=== PATIENT | female | born 1935 | race Two or more races ===

== ENCOUNTER 2020-03-22 19:28 | Inpatient (IN) | payer MEDICARE, OTHER ==
[~2020-03-22] VITALS: Ht 157.5 cm; Wt 79.4 kg
[2020-03-22] MEDS ORDERED: FUROSEMIDE 40 MG/4 ML VIAL ONE (19:57)
[2020-03-22] MEDS ORDERED: FUROSEMIDE 40 MG/4 ML VIAL IV ONE (20:00)
[2020-03-22 20:10] LABS: BASOPHILS # (AUTO) 0.1 /CMM (0.0-0.2); BASOPHILS % (AUTO) 2.2 % (0.0-2.0); EOSINOPHILS % (AUTO) 1.7 % (0.0-6.0); HEMATOCRIT 38 % (33-45); HEMOGLOBIN 12.7 g/dL (11.5-14.8); LYMPHOCYTES # (AUTO) 1.2 /CMM (0.8-4.8); LYMPHOCYTES % (AUTO) 26.5 % (20.0-44.0); MEAN CORPUSCULAR HGB CONC 34 g/dl (31.0-36.0); MEAN CORPUSCULAR VOLUME 99 fL (82-100); MONOCYTES # (AUTO) 0.3 /CMM (0.1-1.30); MONOCYTES % (AUTO) 7.1 % (2.0-12.0); NEUTROPHILS # (AUTO) 2.8 /CMM (1.8-8.9); NEUTROPHILS % (AUTO) 62.5 % (43.0-81.0); PLATELET COUNT (AUTO) 180 /CMM (150-450); RED BLOOD CELL COUNT(AUTO) 3.82 MIL/uL (4.0-5.2); WHITE BLOOD COUNT (AUTO) 4.5 K/uL (4.3-11.0)
--- NOTE | 2020-03-22 20:11 | NUR ---
. AMBUBIBRA FROM HOME TO ER BED 6. AAOX4. NOT IN RESP DISTRESS, BREATHING EVEN AND UNLABORED. SATTING @ 95% ON RA. AMBULATED FROM GURNEY TO BED. BROUGHT IN FOR SOB. PER EMS REPORT, PT WAS HYPERTENSIVE THAT THEY HAD TO GIVE HER 3 SPRAY OF NITRO. UPON ARRIVL AT THE ER, PT IS NOT IN RESP DISTRESS. SBP WAS NOTED IN THE 150S. MD WAS AT THE BEDSIDE FOR EVAL. ORDERS RECEIVED NOTED AND CARRIED OUT
[2020-03-22 20:26] LABS: CALCIUM, SERUM 8.8 mg/dL (8.5-10.1); CARBON DIOXIDE 27 mmol/L (21-32); CHLORIDE 102 mmol/L (98-107); CREATININE 0.9 mg/dL (0.6-1.3); GLUCOSE 114 mg/dL (74-106); POTASSIUM 3.9 mmol/L (3.5-5.1); SODIUM SERUM 136 mmol/L (136-145); UREA NITROGEN, BLOOD 12 mg/dL (7-18)
[2020-03-22 20:38] LABS: ALANINE AMINOTRANSFERASE 16 U/L (12-78); ALBUMIN 3.6 g/dL (3.4-5.0); ALKALINE PHOSPHATASE 92 U/L (46-116); ASPARTATE AMINOTRANSFERASE 21 U/L (15-37); B-TYPE NATRIURETIC PEPTIDE 470 PG/ML (0-125); BILIRUBIN,DIRECT 0.1 mg/dL (0.0-0.2); BILIRUBIN,TOTAL 0.4 mg/dL (0.2-1.0); TOTAL PROTEIN, SERUM 6.9 g/dL (6.4-8.2)
--- NOTE | 2020-03-22 20:45 | NUR ---
COVID SWAB COLLECTED, CALLED LAB FOR NURSERYMAN ASSISTANT
--- NOTE | 2020-03-22 20:52 | NUR ---
PT/ FAMILY DO NOT HAVE THE LIST OF HER HOME MEDS AVAILABLE. WILL F/U,
--- NOTE | 2020-03-22 21:08 | NUR ---
DR. ARGUETA SPEAKING WITH JUAN CORREA REGARDING ADMISSION
[2020-03-22] MEDS ORDERED: FURO-145 PO (21:10)
[2020-03-22] MEDS ORDERED: ISOS30TA6 PO (21:10)
[2020-03-22] MEDS ORDERED: APIX2.5T PO (21:10)
--- NOTE | 2020-03-22 21:47 | NUR ---
REPORT GIVEN TO MARJ HERNADEZ FOR ANDREA
[2020-03-22 22:00] VITALS: BP 155/60
[2020-03-22] MEDS ORDERED: MAG HYDROX/AL HYDROX/SIMETH 30 ML UDC PO PRN (22:00)
[2020-03-22] MEDS ORDERED: MORPHINE SULFATE INJ 2 MG/ML DISP.SYRIN IV PRN (22:00)
[2020-03-22] MEDS ORDERED: ACETAMINOPHEN 325 MG TABLET PO PRN (22:00)
[2020-03-22] MEDS ORDERED: ZOLPIDEM TARTRATE 5 MG TABLET PO PRN (22:00)
[2020-03-22] MEDS ORDERED: ASPIRIN 325 MG TABLET PO ONE (22:00)
[2020-03-22] MEDS ORDERED: MAGNESIUM HYDROXIDE 30 ML UDC PO PRN (22:00)
[2020-03-22] MEDS ORDERED: Z GUARD REMEDY 2 OZ OINT TP PRN (22:00)
[2020-03-22] MEDS ORDERED: HYDROCODONE/APAP 5/325MG TABLET PO PRN (22:00)
[2020-03-22] MEDS ORDERED: ONDANSETRON HCL/PF 4 MG/2 ML VIAL IVP PRN (22:00)
--- NOTE | 2020-03-22 22:05 | NUR ---
PT TRANSPORTED TO UNIT ON [address] WITH EMT AND RN AT BEDSIDE W/ ACLS PROTOCOL. NAD NOTED DURING TRANSPORT. PT AMBULATED FROM GURNEY TO BED WITHOUT ASSIST ON STEADY GAIT
--- NOTE | 2020-03-22 22:06 | NUR ---
TELE/RN ADMITTING NOTES: RECEIVED REPORT FROM ER NURSE, GEE. PT ARRIVED TO THE UNIT AT 2200 VIA GURNEY WITH ACLS PROTOCOL. A/OX4, STATELESS SPEAKING, REQUIRES REPAIRER CYLINDER HEADS AND TRANSLATION. PT IS VERBALLY RESPONSIVE AND ABLE TO MAKE NEEDS KNOWN. NO SOB NOTED, NO S/S OF DISTRESS, NO C/O PAIN AT THIS TIME. BREATHING EVEN AND UNLABORED. IV SITE ON THE RIGHT AC #20G INTACT AND PATENT. ORIENTED TO UNIT AND STAFF. BELONGINGS LIST CHECKED. INITIAL VS TAKEN. WNL AND STABLE. BP: 155/60, HR:62, RR:20, TEMP:98, PULSE OX 98%. SAFETY MEASURES IN PLACE. BED IN LOW, LOCKED POSITION WITH SR UP X2. WILL CONTINUE TO MONITOR ACCORDINGLY.
--- NOTE | 2020-03-22 22:07 | NUR ---
TELE/RN NOTES: PT TRANSFERRED TO ROOM 304-2. CONNECTED TO TELE MONITOR. CURRENT READING OF SB 56. PT STABLE. WILL CONTINUE TO MONITOR.
[2020-03-22 22:30] VITALS: BP 155/60
--- NOTE | 2020-03-22 23:50 | NUR ---
TELE/RN NOTES: PT.'S DAUGHTER CALLED AGAIN REGARDING PT'S MEDS AT HOME. DAUGHTER WANTS TO INFORM THE DOCTOR THAT SHE TAKES FLECANIDE BID UNKNOWN DOSE, METOPROLOL UNKNOWN DOSE, NITRO SUBLINGUAL NEEDED UNKNOWN DOSE, AND CLONIDINE 0.1MG PRN FOR SBP >160. PER PT'S FAMILY, SHE DOESN'T KNOW THE DOSE BUT SHE WILL F/U IN THE MORNING WITH THE PHARMACY. RELAYED TO TURNING MACHINE OPERATOR, ACUPRESSURIST ALMA. PER ALMA, "INPUT THE MEDS FOR NOW AND I'LL RECONCILE THEM. PT'S BP FOR NOW IS GOOD." PT AWARE. WILL INFORM FAMILY IF THEY CALL BACK AGAIN.
[2020-03-22] MEDS ORDERED: CLON0.1T PO (23:53)
[2020-03-22] MEDS ORDERED: FLEC100T2 PO (23:53)
[2020-03-22] MEDS ORDERED: METO25TA4 PO (23:53)
[2020-03-22] MEDS ORDERED: NITR0.4T48 SL (23:53)
[2020-03-23] VITALS: BP 140/76
[2020-03-23 00:56] LABS: BILIRUBIN,URINE NEGATIVE (NEGATIVE); COLOR,URINE YELLOW (YELLOW); LEUKOCYTE ESTERASE ,URINE NEGATIVE (NEGATIVE); NITRITE, URINE NEGATIVE (NEGATIVE); PROTEIN,URINE NEGATIVE (NEGATIVE); UGLUCOSE NEGATIVE (NEGATIVE); UROBILINOGEN,URINE 0.2 EU/dL (0.2)
[2020-03-23 00:57] LABS: BLOOD, URINE NEGATIVE Ery/uL (NEGATIVE)
[2020-03-23 04:00] VITALS: BP 121/62
[2020-03-23 06:03] LABS: BASOPHILS % (AUTO) 0.8 % (0.0-2.0); EOSINOPHILS % (AUTO) 0.7 % (0.0-6.0); HEMATOCRIT 38 % (33-45); HEMOGLOBIN 13.1 g/dL (11.5-14.8); LYMPHOCYTES # (AUTO) 1.4 /CMM (0.8-4.8); LYMPHOCYTES % (AUTO) 37.1 % (20.0-44.0); MEAN CORPUSCULAR HGB CONC 34 g/dl (31.0-36.0); MEAN CORPUSCULAR VOLUME 97 fL (82-100); MONOCYTES # (AUTO) 0.3 /CMM (0.1-1.30); NEUTROPHILS % (AUTO) 52.4 % (43.0-81.0); PLATELET COUNT (AUTO) 195 /CMM (150-450); RED BLOOD CELL COUNT(AUTO) 3.92 MIL/uL (4.0-5.2); WHITE BLOOD COUNT (AUTO) 3.9 K/uL (4.3-11.0)
[2020-03-23 06:14] LABS: ALANINE AMINOTRANSFERASE 15 U/L (12-78); ALBUMIN 3.7 g/dL (3.4-5.0); ALKALINE PHOSPHATASE 70 U/L (46-116); ASPARTATE AMINOTRANSFERASE 17 U/L (15-37); BILIRUBIN,TOTAL 0.6 mg/dL (0.2-1.0); CALCIUM, SERUM 8.9 mg/dL (8.5-10.1); CARBON DIOXIDE 30 mmol/L (21-32); CHLORIDE 104 mmol/L (98-107); CREATININE 0.9 mg/dL (0.6-1.3); GLUCOSE 91 mg/dL (74-106); MAGNESIUM 2.2 mg/dL (1.8-2.4); PHOSPHORUS 3.4 mg/dL (2.5-4.9); POTASSIUM 3.6 mmol/L (3.5-5.1); SODIUM SERUM 141 mmol/L (136-145); TOTAL PROTEIN, SERUM 6.8 g/dL (6.4-8.2); UREA NITROGEN, BLOOD 13 mg/dL (7-18)
[2020-03-23 06:22] LABS: CHOLESTEROL 147 mg/dL (<200); HDL CHOLESTEROL 78 mg/dL (40-60); LDL 60 mg/dL (0-99); TRIGLYCERIDES 69 mg/dL (30-150)
--- NOTE | 2020-03-23 06:49 | NUR ---
TELE/RN CLOSING NOTES: PT REMAINS A/OX4, BURUNDIAN SPEAKING, REQUIRES DAIRY FARM MANAGER AND TRANSLATION. PT IS VERBALLY RESPONSIVE AND ABLE TO MAKE NEEDS KNOWN. NO SOB NOTED, NO S/S OF DISTRESS, NO C/O PAIN AT THIS TIME. BREATHING EVEN AND UNLABORED. TELE READING OF SB 56. IV SITE ON THE RIGHT AC #20G INTACT AND PATENT. VS WNL AND STABLE. AWAITING FOR MEDS TO BE RECONCILED. SAFETY MEASURES IN PLACE. BED IN LOW, LOCKED POSITION WITH SR UP X2. WILL ENDORSE TO DAY SHIFT FOR ANDREA.
--- NOTE | 2020-03-23 07:35 | NUR ---
SUPERINTENDENT STATIONS OPENING SHIFT NOTES RECEIVED PATIENT RESTING COMFORTABLY IN BED; A/OX4, POLISH SPEAKER. PT IS VERBALLY RESPONSIVE AND ABLE TO MAKE NEEDS KNOWN. PATIENT IS ON OXYGEN VIA NC @ 2L, NO SOB NOTED, NO S/S OF DISTRESS, NO C/O PAIN AT THIS TIME. BREATHING EVEN AND UNLABORED. PATIENT ON TELE MONITOR READING SINUS ACE IN THE 50'S. IV TO RT AC #20G PATENT AND INTACT. SAFETY MEASURES IN PLACE. BED IS AT LOWEST POSITION AND LOCKED WITH SIDE RAILS UP X2. WILL CONTINUE TO MONITOR PT THROUGH SHIFT
[2020-03-23 08:00] VITALS: BP 142/73
[2020-03-23] MEDS ORDERED: NITROGLYCERIN 0.4 MG/TAB BOTTLE SL ONE ×2 (09:00→13:00)
[2020-03-23] MEDS: ASPIRIN 81 MG TAB.CHEW PO SCH (09:03)
[2020-03-23] MEDS: APIXABAN 2.5 MG TABLET PO SCH ×2 (09:05→16:28)
[2020-03-23] MEDS: ISOSORBIDE MONONITRATE (30MG) 30 MG TAB.SR.24H PO SCH (09:06)
[2020-03-23] MEDS: FUROSEMIDE 20 MG TABLET PO SCH (09:06)
[2020-03-23] MEDS ORDERED: CT SWABBABLE VALVE TRANS SET 1 EA INFUS.SET MC ONE (11:56)
[2020-03-23] MEDS ORDERED: IV NS 0.9% 250 ML IV ONE (11:56)
[2020-03-23] MEDS ORDERED: IOHEXOL-350 100 ML VIAL IV ONE (11:56)
[2020-03-23 12:00] VITALS: BP 139/67
[2020-03-23] MEDS ORDERED: METOPROLOL TARTRATE INJ 5 MG/5 ML AMPUL ONE (12:14)
[2020-03-23] MEDS ORDERED: NITROGLYCERIN 0.4 MG/TAB BOTTLE ONE (12:14)
[2020-03-23] MEDS: METOPROLOL TARTRATE INJ 5 MG/5 ML AMPUL IVP PRN ×2 (12:25→12:29)
--- NOTE | 2020-03-23 12:41 | NUR ---
RN NOTES: Post CTA: Patient able to tolerate procedure, No distress noted. transferred back to patient room.
[2020-03-23 16:00] VITALS: BP 114/70
[2020-03-23] MEDS ORDERED: RANO500T3 PO (17:30)
[2020-03-23] MEDS ORDERED: PANT20TA17 PO (17:30)
[2020-03-23] MEDS ORDERED: OLOP2.5D5 EACHEYE (17:30)
[2020-03-23] MEDS ORDERED: ATOR40TA PO (17:30)
[2020-03-23] MEDS ORDERED: POTA-10 PO (17:30)
[2020-03-23] MEDS ORDERED: MELO-105 PO (17:30)
--- NOTE | 2020-03-23 18:00 | NUR ---
METALLURGY LABORATORY TECHNICIAN CLOSING NOTES PATIENT RESTING COMFORTABLY IN BED; A/OX4, UPPER SORBIAN SPEAKER. PATIENT IS ON OXYGEN VIA NC @ 2L, NO SOB NOTED, NO S/S OF DISTRESS, BREATHING EVEN AND UNLABORED. PATIENT ON TELE MONITOR READING SINUS ACE HR 69. IV TO RT AC #20G & LT AC #18G BOTH PATENT AND INTACT. BED IS AT LOWEST POSITION AND LOCKED WITH SIDE RAILS UP X2. WILL ENDORSE TO ONCOMING SHIFT
--- NOTE | 2020-03-23 19:30 | NUR ---
Opening Notes: Report received from am nurse. Patient is ambulatory with walker, able to make needs known. No acute distress noted. Denies any pain, no SOB noted. Patient assisted with ADLs and transfers. Patient able to reposition and turn herself. Fall precautions observed. Call light within reach.
[2020-03-23 20:00] VITALS: BP 118/57
[2020-03-24 06:04] LABS: BASOPHILS % (AUTO) 0.8 % (0.0-2.0); EOSINOPHILS % (AUTO) 1.9 % (0.0-6.0); HEMATOCRIT 38 % (33-45); HEMOGLOBIN 13.2 g/dL (11.5-14.8); LYMPHOCYTES # (AUTO) 1.6 /CMM (0.8-4.8); LYMPHOCYTES % (AUTO) 36.9 % (20.0-44.0); MEAN CORPUSCULAR HGB CONC 35 g/dl (31.0-36.0); MEAN CORPUSCULAR VOLUME 97 fL (82-100); MONOCYTES # (AUTO) 0.4 /CMM (0.1-1.30); MONOCYTES % (AUTO) 9.8 % (2.0-12.0); NEUTROPHILS # (AUTO) 2.2 /CMM (1.8-8.9); NEUTROPHILS % (AUTO) 50.6 % (43.0-81.0); PLATELET COUNT (AUTO) 189 /CMM (150-450); RED BLOOD CELL COUNT(AUTO) 3.87 MIL/uL (4.0-5.2); WHITE BLOOD COUNT (AUTO) 4.3 K/uL (4.3-11.0)
[2020-03-24 06:12] LABS: CALCIUM, SERUM 8.8 mg/dL (8.5-10.1); CREATININE 0.9 mg/dL (0.6-1.3); MAGNESIUM 2.3 mg/dL (1.8-2.4); PHOSPHORUS 4.1 mg/dL (2.5-4.9); POTASSIUM 3.3 mmol/L (3.5-5.1)
--- NOTE | 2020-03-24 06:42 | NUR ---
Closing Notes: Patient in bed eyes, closed, resting comfortably. No acute distress noted. Denies any pain, no SOB noted. Patient assisted with ADLs and transfers. Patient able to reposition and turn herself. Patient without any c/o or issues noted throughout the night. Able to sleep. Fall precautions observed. Call light within reach. VS WNL.
--- NOTE | 2020-03-24 07:30 | NUR ---
MS/RN OPENING NOTE Received patient resting in bed, A&O x 4. Denies any pain/discomfort at this time. Breathing even and non-labored on 2L oxygen via NC. No respiratory or cardiac distress noted. IV access noted on R AC #20 gauge, patent and intact, and flushing well. Sensation from all peripheral extremities intact. Bed locked to its lowest position, side rails x 2 up, call light in hand. Will continue with current medical management.
[2020-03-24 08:48] VITALS: BP 144/86
[2020-03-24] MEDS: ISOSORBIDE MONONITRATE (30MG) 30 MG TAB.SR.24H PO SCH (09:02)
[2020-03-24] MEDS: FUROSEMIDE 20 MG TABLET PO SCH (09:02)
[2020-03-24] MEDS: ASPIRIN 81 MG TAB.CHEW PO SCH (09:02)
[2020-03-24] MEDS: APIXABAN 2.5 MG TABLET PO SCH ×2 (09:03→16:38)
[2020-03-24] MEDS ORDERED: PNEUMOCOCCAL 23-VAL P-SAC VAC 0.5 ML VIAL SQ ONE (10:00)
--- NOTE | 2020-03-24 10:00 | NUR ---
MS/RN NOTE Bernadine, daughter, called to remind her what time patient is going to get picked up if she gets discharged.
--- NOTE | 2020-03-24 10:55 | NUR ---
MS/RN NOTE Administered pneumococcal vaccine on ANANTH. Will continue to monitor.
[2020-03-24] MEDS ORDERED: POTASSIUM CHLORIDE 20 MEQ TAB.PRT.SR PO SCH (11:00)
--- NOTE | 2020-03-24 13:00 | NUR ---
MS/RN NOTE Attempted to call Bernadine (daughter), call went straight to voicemail. Will attempt to call back later.
--- NOTE | 2020-03-24 14:00 | NUR ---
MS/RN NOTE Attempted to call Bernadine (daughter) the second time, call went straight to voicemail again. Will attempt to call back later.
--- NOTE | 2020-03-24 15:12 | NUR ---
MS/RN NOTE Attempted to call Bernadine (daughter) the third time, call went straight to voicemail again. Called Scot (son) instead regarding discharge time and instructions.
[2020-03-24 16:28] VITALS: BP 154/72
--- NOTE | 2020-03-24 17:30 | NUR ---
MS/CONSTRUCTION ADMINISTRATIVE ASSISTANT NOTES Patient picked up at 1730 by Scot (son). All needs are met and attended to. Patient remained stable throughout shift. A&O X 4, VSS, afebrile, no SOB noted. Denies any pain/discomfort at this time. Breathing even and non-labored on 2L oxygen, no respiratory distress noted. No cardiac distress noted. IV access on R AC #20 gauge removed with catheter intact, placed clean dry dressing on site. No s/s of infection, infiltration, or bleeding noted. Sensation from all peripheral extremities intact. Educated patient and Scot regarding discharge instructions, answered all their questions to their satisfaction. Both have verbalized understanding. Patient left facility safely with all belongings and hospital documents in hand.
== END 2020-03-24 17:45 | disposition home or self-care (01) | DRG 392 ==
LOC: ER 19:30 → TELE 21:28 → MED 03-23 15:46
PROVIDERS: ADMIT Nurse Practitioner Acute Care
DX: K21.9 Gastro-esophageal reflux disease without esophagitis (principal); D68.69 Other thrombophilia; I11.0 Hypertensive heart disease with heart failure; Z79.01 Long term (current) use of anticoagulants; I48.91 Unspecified atrial fibrillation; I50.9 Heart failure, unspecified; Z73.6 Limitation of activities due to disability
CPT/HCPCS: 36415; 71045-TC; 75574; 80048-TC; 80053-TC; 80061-TC; 80076-TC; 81001; 83735-TC; 83880; 84100-TC; 84443-TC; 84484-TC; 85025-TC; 85730-TC; 87081-TC; 90732; 93307-TC; C9803; G0378; J1940; J3490; J7050; Q9967